=== PATIENT | female | born 1990 | race Caucasian/White ===

== ENCOUNTER → 2020-05-08 18:15 | Observation (INO) ==
[2020-05-08 17:16] LABS: Bacteria,Urine Few per hpf (None-Few); Bilirubin,Urine Negative (Negative); Blood,Urine Negative (Negative); Clarity,Urine Clear (Clear); Color,Urine Light-Yellow (Yellow); Glucose,Urine (UA) Normal (Normal); Ketones,Urine Negative (Negative); Leukocyte Esterase,Urine Small (Negative); Mucus,Urine Few per lpf (None-Few); Nitrite,Urine Negative (Negative); Protein,Urine Negative (Neg-Trace); RBC,Urine 0-3 per hpf (0-3); Specific Gravity,Urine 1.016 (1.010-1.025); Squamous Epithelial Cell,Urine Few per hpf (None-Few); Urobilinogen,Urine Normal (Normal)
== END | disposition home or self-care (01) ==
LOC: 1NENULAB
PROVIDERS: ADMIT Obstetrics & Gynecology; ATTEND Obstetrics & Gynecology

== ENCOUNTER 2020-05-30 07:48 | Inpatient (IN) ==
[2020-05-30] MEDS ORDERED: Metoclopramide 10 MG/2 ML VIAL IVP PRN (08:44)
[2020-05-30] MEDS ORDERED: Ondansetron 4 MG/2 ML VIAL IVP PRN (08:44)
[2020-05-30] MEDS ORDERED: Naloxone 0.4 MG/ML INJ IVP PRN (08:44)
[2020-05-30] MEDS ORDERED: Lidocaine 1% 20 ML MDV INFILT PRN (08:44)
[2020-05-30] MEDS ORDERED: Famotidine 20 MG/2 ML VIAL IVP PRN (08:44)
[2020-05-30] MEDS ORDERED: Ringers Solution, Lactated 1,000 ML IVC SCH (08:45)
[2020-05-30] MEDS ORDERED: miSOPROStoL 25 MCG TABLET VG PRN (08:47)
[2020-05-30 09:06] LABS: Basophils % 0.3 %; Eosinophils % 0.1 %; Hemoglobin 11.2 g/dL (11.5-15.4); Immature Granulocytes % 1.1 % (0-4); Lymphocytes # 2.3 K/mcL (0.6-4.6); Lymphocytes % 22.9 %; Mean Corpuscular HGB Conc 32.9 g/dL (31.6-35.5); Mean Corpuscular Hemoglobin 31.3 pg (28.0-33.3); Monocytes # 0.8 K/mcL (0.0-1.3); Monocytes % 7.8 %; Neutrophils # 6.7 K/mcL (1.6-8.9); Platelet Count 202 K/mcL (140-400); Red Blood Count 3.58 M/mcL (3.82-4.97); Red Cell Distribution Width 13.6 % (11.5-14.5); Segmented Neutrophils % 67.8 %; White Blood Count 9.8 K/mcL (4.3-11.1)
[2020-05-30 10:44] LABS: Amphetamine Screen,Urine Negative ng/mL (Cutoff=1000); Barbiturate Screen,Urine Negative ng/mL (Cutoff=200); Benzodiazepines Screen,Urine Negative ng/mL (Cutoff=200); Cannabinoid Screen,Urine Negative ng/mL (Cutoff = 50); Cocaine Screen,Urine Negative ng/mL (Cutoff= 300); Opiate Screen,Urine Negative ng/mL (Cutoff=300); Phencyclidine Screen,Urine Negative ng/mL (Cutoff=25)
[2020-05-30] MEDS ORDERED: Oxytocin 20 units/ LR 1000 mL 20 UNIT/1,000 ML BAG IVC SCH ×2 (14:00→22:24)
[2020-05-30] MEDS ORDERED: EPHEDrine 50 MG/ML VIAL IVP PRN (14:21)
[2020-05-30] MEDS ORDERED: Epidural Premix (fent/bupiv) 110 ML EP SCH (14:30)
[2020-05-30] MEDS ORDERED: Lanolin 7 G OINT...G. TP PRN (22:24)
[2020-05-30] MEDS ORDERED: Measles/Mumps/Rubella Vacc 0.5 ML VIAL SQ PRN (22:24)
[2020-05-30] MEDS ORDERED: Benzocaine/Menthol 56 GM AEROSOL SPRAY TP PRN (22:24)
[2020-05-31] MEDS: Ibuprofen 600 MG TABLET PO PRN ×2 (01:54→15:06)
[2020-05-31] MEDS: Prenatal Vit/FA 1 EACH TABLET PO SCH (07:55)
[2020-05-31] MEDS: Acetaminophen 325 MG TABLET PO PRN ×2 (07:55→19:46)
[2020-05-31 08:33] LABS: Basophils % 0.2 %; Eosinophils % 0.1 %; Hematocrit 33.8 % (35.3-44.9); Hemoglobin 10.9 g/dL (11.5-15.4); Immature Granulocytes % 0.6 % (0-4); Lymphocytes # 2.3 K/mcL (0.6-4.6); Lymphocytes % 15.4 %; Mean Corpuscular HGB Conc 32.2 g/dL (31.6-35.5); Mean Corpuscular Hemoglobin 31.1 pg (28.0-33.3); Mean Corpuscular Volume 96.3 fL (83.0-100.0); Mean Platelet Volume 10.6 fL (9.4-12.4); Monocytes % 6.9 %; Neutrophils # 11.3 K/mcL (1.6-8.9); Platelet Count 175 K/mcL (140-400); Red Blood Count 3.51 M/mcL (3.82-4.97); Red Cell Distribution Width 13.7 % (11.5-14.5); Segmented Neutrophils % 76.8 %; White Blood Count 14.7 K/mcL (4.3-11.1)
[2020-05-31] MEDS ORDERED: PRENATAL PO SCH (09:00)
[2020-06-01] MEDS: Ibuprofen 600 MG TABLET PO PRN ×2 (02:06→08:23)
[2020-06-01 07:57] VITALS: BP 111/77
[2020-06-01] MEDS: Prenatal Vit/FA 1 EACH TABLET PO SCH (08:24)
== END 2020-06-01 13:06 | disposition home or self-care (01) | DRG 560 ==
LOC: 1NENULAB 07:48 → 1NENUOBS 05-31 00:41
PROVIDERS: ADMIT Obstetrics & Gynecology; ATTEND Obstetrics & Gynecology